=== PATIENT | male | born 1990 | race Caucasian/White ===

== ENCOUNTER 2019-07-23 19:27 | Emergency (ER) | payer MEDICAID ==
[~2019-07-23] VITALS: Ht 167.6 cm; Wt 98.0 kg
[~2019-07-23 19:27] MED LIST: CLON-528 PO; DOXY150T9 PO; HYDR1TAB PO; IBUP-1573 PO; PAM25C PO; PENI500T2 PO; PROM5SYR PO; TRAM50TA2 PO
[2019-07-23 19:30] VITALS: BP 134/88
[2019-07-23] MEDS ORDERED: dexamethasone sod phosphate 10mg/ml inj PO STA (20:47)
[2019-07-23] MEDS ORDERED: ondansetron 4mg rapidly disintigrating tab PO ONE (20:50)
== END 2019-07-23 21:34 | disposition home or self-care (01) ==
LOC: ER 19:27
DX: J03.80 Acute tonsillitis due to other specified organisms (principal); B97.89 Other viral agents as the cause of diseases classified elsewhere; R07.89 Other chest pain; F41.9 Anxiety disorder, unspecified; F32.9 Major depressive disorder, single episode, unspecified; Z87.891 Personal history of nicotine dependence; Z88.1 Allergy status to other antibiotic agents; Z79.899 Other long term (current) drug therapy
CPT/HCPCS: 87081; 87880; 99283; J1100

== ENCOUNTER 2019-07-25 10:51 | Emergency (ER) | payer MEDICAID ==
[~2019-07-25] VITALS: Ht 167.6 cm; Wt 97.0 kg
[2019-07-25 10:51] VITALS: BP 135/79
[2019-07-25] MEDS ORDERED: dexamethasone sod phosphate 10mg/ml inj IM STA (11:07)
[2019-07-25] MEDS ORDERED: clindamycin phosphate 150mg/ml inj. IM ONE (11:10)
[2019-07-25] MEDS ORDERED: NAPR-56 PO (11:14)
[2019-07-25] MEDS ORDERED: LIDO20SO16 PO (11:14)
[2019-07-25] MEDS ORDERED: DOXY100C43 PO (11:14)
[2019-07-26] MEDS ORDERED: AMOX-580 PO (23:41)
== END 2019-07-25 11:26 | disposition home or self-care (01) ==
LOC: ER 10:51
DX: J02.0 Streptococcal pharyngitis (principal); B95.5 Unspecified streptococcus as the cause of diseases classified elsewhere; J35.1 Hypertrophy of tonsils; F41.9 Anxiety disorder, unspecified; F32.9 Major depressive disorder, single episode, unspecified; Z88.1 Allergy status to other antibiotic agents; Z79.899 Other long term (current) drug therapy
CPT/HCPCS: 96372; 99283; J1100; J3490

== ENCOUNTER 2019-07-26 22:50 | Emergency (ER) | payer MEDICAID ==
[~2019-07-26] VITALS: Ht 167.6 cm; Wt 100.0 kg
[~2019-07-26 22:50] MED LIST changes: +DOXY100C43 PO; +LIDO20SO16 PO; +NAPR-56 PO
[2019-07-26] MEDS ORDERED: AMOX-580 PO (23:41)
[2019-07-26 23:46] VITALS: BP 143/84
== END 2019-07-26 23:48 | disposition home or self-care (01) ==
LOC: ER 22:53
DX: J36 Peritonsillar abscess (principal); F41.9 Anxiety disorder, unspecified; F32.9 Major depressive disorder, single episode, unspecified; Z88.1 Allergy status to other antibiotic agents; Z79.899 Other long term (current) drug therapy
CPT/HCPCS: 99283

== ENCOUNTER 2019-08-23 23:24 | Emergency (ER) | payer MEDICAID, OTHER ==
[~2019-08-23] VITALS: Ht 167.6 cm; Wt 100.0 kg
[~2019-08-23 23:24] MED LIST changes: +AMOX-580 PO; -DOXY100C43 PO
[2019-08-24 00:04] LABS: BASOPHILS # (AUTO) 0.2 X10'3 (0-0.2); BASOPHILS % (AUTO) 1.7 % (0-1); EOSINOPHILS # (AUTO) 0.4 X10'3 (0-0.9); HEMATOCRIT 48.8 % (42.0-52.0); HEMOGLOBIN 16.9 g/dl (14.0-17.9); LYMPHOCYTES % (AUTO) 36.3 % (21-51); MEAN CORPUSCULAR HGB CONC 34.6 g/dL (33.0-36.5); MEAN CORPUSCULAR VOLUME 86.6 FL (78-98); MEAN PLATELET VOLUME 8.4 FL (7.4-10.4); MONOCYTES # (AUTO) 0.8 X10'3 (0-0.9); MONOCYTES % (AUTO) 5.6 % (2-12); NEUTROPHILS # (AUTO) 7.4 X10'3 (1.8-7.7); NEUTROPHILS % (AUTO) 53.4 % (42-75); PLATELET COUNT 306 X10'3 (140-440); RED BLOOD COUNT 5.64 X10'6 (4.70-6.10); RED CELL DISTRIBUTION WIDTH 12.8 % (11.5-14.5); WHITE BLOOD COUNT 13.9 X10'3 (4.5-11.0)
[2019-08-24 00:14] LABS: PARTIAL THROMBOPLASTIN TIME 27 SECONDS (22-32)
[2019-08-24 00:17] LABS: ALANINE AMINOTRANSFERASE 50 U/L (12-78); ALKALINE PHOSPHATASE 78 IU/L (46-116); ANION GAP 10 (8-16); ASPARTATE AMINO TRANSFERASE 24 U/L (10-37); BILIRUBIN,TOTAL 0.5 MG/DL (0.1-1.0); BLOOD UREA NITROGEN 10 MG/DL (7-18); BUN/CREATININE RATIO 8.2 (5.4-32.0); CALCIUM 8.6 MG/DL (8.5-10.1); CHLORIDE 104 MMOL/L (99-107); CREATININE 1.22 MG/DL (0.60-1.10); GLUCOSE 125 MG/DL (70-104); POTASSIUM 3.5 MMOL/L (3.5-5.1); SODIUM 139 MMOL/L (135-145); TOTAL CARBON DIOXIDE 25.3 MMOL/L (24-32); TOTAL PROTEIN 7.9 G/DL (6.4-8.2); eGFR 70 ML/MIN
[2019-08-24 00:59] VITALS: BP 148/92
== END 2019-08-24 00:59 | disposition home or self-care (01) ==
LOC: ER 23:25
DX: R07.89 Other chest pain (principal); R06.02 Shortness of breath; R00.2 Palpitations; F41.9 Anxiety disorder, unspecified; F32.9 Major depressive disorder, single episode, unspecified; F17.200 Nicotine dependence, unspecified, uncomplicated; Z88.1 Allergy status to other antibiotic agents; Z79.899 Other long term (current) drug therapy
CPT/HCPCS: 36415; 71045; 80053; 84484; 85025; 85610; 85730; 93005; 99284

== ENCOUNTER 2025-05-07 22:28 | Emergency (ER) | payer MEDICAID ==
[~2025-05-07] VITALS: Ht 165.1 cm; Wt 100.0 kg
[~2025-05-07 22:28] MED LIST changes: -AMOX-580 PO; -CLON-528 PO; +CLON-850 PO; -NAPR-56 PO
[2025-05-07 22:30] VITALS: TEMP 98.2
[2025-05-07 23:09] VITALS: BP 120/77; PULSE 78; RESP 18; O2SAT 99
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
== END 2025-05-08 00:11 ==
LOC: ER 22:29
DX: Z00.8 Encounter for other general examination (principal); F41.9 Anxiety disorder, unspecified; F32.A Depression, unspecified; Z88.1 Allergy status to other antibiotic agents; Z88.8 Allergy status to other drugs, medicaments and biological substances
CPT/HCPCS: 99283